=== PATIENT | male | born 1950 | race Caucasian/White ===

== ENCOUNTER 2019-05-17 07:01 | Outpatient (CLI) | payer OTHER, MEDICARE, BC ==
--- NOTE | 2019-05-17 10:11 | CT ---
CT ABDOMEN AND PELVIS WITH ORAL AND IV CONTRAST: HISTORY: Diarrhea, weight loss, reflux. COMPARISON: None. FINDINGS: There is mild dependent change in the right lung base. The patient is post cholecystectomy. The asa er, spleen, adrenal glands, and left kidney are normal. There is a small low-density lesion at the r ight kidney measuring up to 7 mm, statistically likely to represent cyst. The pancreas is atrophic. A 6 mm low-density lesion is seen in the neck of the pancreas. No free air, free fluid, or lymphadenopathy is seen in the abdomen or pelvis. The small bowel loops are not abnormally dilated. There is fecal material in the colon. A normal-appearing appendix is se en. There are vascular calcifications without evidence of aneurysmal dilatation of the abdominal aorta. Degenerative changes are present in the spine. The prostate is enlarged. There is prominence of the pyloric antrum. IMPRESSION: 1. A 6 mm low-density lesion in the pancreas. Evaluation with endoscopic ultrasound would be helpfu l. 2. Prominence of the wall of the pyloric antrum. Endoscopic evaluation would be helpful. 3. Probable tiny right renal cyst. 4. Prostatic enlargement. POS: [facility]
[2019-05-17] MEDS ORDERED: Iopamidol-370 76% 500 ML 1 ML ONE (13:29)
== END 2019-05-17 07:02 | disposition home or self-care (01) ==
LOC: BICCT 07:01
PROVIDERS: ATTEND Internal Medicine Gastroenterology
DX: K21.9 Gastro-esophageal reflux disease without esophagitis (principal); R19.7 Diarrhea, unspecified; R63.4 Abnormal weight loss; R42 Dizziness and giddiness; K86.9 Disease of pancreas, unspecified; N40.0 Benign prostatic hyperplasia without lower urinary tract symptoms
CPT/HCPCS: 74177; 82565; Q9967

== ENCOUNTER 2019-06-08 07:47 | Outpatient (CLI) | payer OTHER, MEDICARE, BC ==
--- NOTE | 2019-06-08 10:25 | MRI ---
MRI ABDOMEN WITH AND WITHOUT IV CONTRAST: HISTORY: Diarrhea, weight loss, reflux. Abnormal CT scan. CORRELATION: CT scan of abdomen dated 05/17/2019. FINDINGS: The patient is post cholecystectomy. There is dilatation of the biliary ducts. The left and the rig ht biliary ducts do not demonstrate coalescence distally. There is atrophic change in the pancreas w ith prominence/dilatation of the proximal and the distal portions of the pancreatic duct. The mid po rtion within the region of maximum atrophy is not visualized. These findings give the appearance of cysts on the CT scan. No hepatic mass is seen. The spleen, adrenal glands, and left kidney appear normal. There are tiny cysts in the right kidney. No free fluid or lymphadenopathy is seen in the abdomen. There is no evidence of aneurysmal dilatati on of the abdominal aorta. The bone marrow signal is normal. IMPRESSION: Atrophic pancreas with incomplete visualization of the pancreatic duct. Two separate dilated extrahe patic bile ducts are seen. The possibility of annular pancreas cannot be excluded (in the setting of atrophy). Further evaluation with ERCP is recommended. POS: [facility]
[2019-06-08] MEDS ORDERED: Magnevist 469MG/ML 20 ML VIAL ONE (10:58)
== END 2019-06-08 07:48 | disposition home or self-care (01) ==
LOC: BICMRI 07:47
PROVIDERS: ATTEND Internal Medicine Gastroenterology
DX: R93.5 Abnormal findings on diagnostic imaging of other abdominal regions, including retroperitoneum (principal); K86.89 Other specified diseases of pancreas
CPT/HCPCS: 74183; A9579